=== PATIENT | female | born 1960 | race Caucasian/White ===

== ENCOUNTER 2017-01-05 13:38 | Emergency (ER) | payer OTHER ==
[~2017-01-05] VITALS: Ht 160 cm; Wt 108.9 kg
[~2017-01-05 13:38] MED LIST: IBU800 M1 PO; PROTONIX20 MG PO; Synthroid,Levo88 MCG PO; VITAMIN D1000 IU PO; Zofran4 MG PO
[2017-01-05] MEDS ORDERED: PANTOPRAZOLE SO40 MG PO (13:52)
[2017-01-05] MEDS ORDERED: [UNRECOGNIZED DRUG - OTHER] PO (13:53)
[2017-01-05 13:54] VITALS: BP 110/78
[2017-01-05 15:02] LABS: HEMATOCRIT 35.4 % (37.0-47.0); MEAN CELL VOLUME 92.4 fl (81.0-99.0); MEAN CORPUSCULAR HGB 31.3 pg (27.0-31.0); MEAN CORPUSCULAR HGB CONC 33.9 g/dl (33.0-37.0); MEAN PLATELET VOLUME 9.6 fl (9.6-12.3); PLATELET COUNT AUTOMATED 261 10*3/uL (130-400); RED BLOOD COUNT 3.83 10*6/uL (4.10-5.10); RED CELL DISTRI WIDTH 13.8 % (0-14.5); WHITE BLOOD COUNT 5.5 10*3/uL (4.8-10.8)
[2017-01-05 15:20] LABS: ALBUMIN 3.2 gm/dl (3.1-4.5); BILIRUBIN, TOTAL 0.4 mg/dl (0.2-1.0); C-REACTIVE PROTEIN 0.82 MG/DL (0-0.3); POTASSIUM 3.4 mmol/L (3.5-5.1); TOTAL PROTEIN 6.8 gm/dL (6.4-8.2)
[2017-01-05 15:25] LABS: ATYPICAL LYMPHS 1 % (0-0); EOSINOPHIL # 0.1 10*3/uL (0-0.4); EOSINOPHILS 2 % (1-4); LYMPHOCYTE # 1.8 10*3/uL (1.3-4.4); MONOCYTE # 0.2 10*3/uL (0.1-1.0); NEUTROPHIL # 3.4 10*3/uL (2.3-7.9); NEUTROPHILS 62 % (47-73); TOTAL CELLS COUNTED 100 #CELLS
[2017-01-05 15:26] LABS: PLATELET SUFFICIENCY NORMAL (NORMAL); POLYCHROMASIA SLIGHT
[2017-01-05 15:51] LABS: BILIRUBIN 3+ (NEGATIVE); BLOOD NEGATIVE (NEGATIVE); CLARITY CLEAR (CLEAR); COLOR YELLOW (YELLOW); GLUCOSE NEGATIVE (NEGATIVE); KETONE NEGATIVE (NEGATIVE); LEUKO ESTERASE NEGATIVE (NEGATIVE); NITRITE NEGATIVE (NEGATIVE); PH 5.5 (5.0-9.0); PROTEIN NEGATIVE (NEGATIVE); SPECIFIC GRAVITY 1.015 (1.005-1.030); UROBILINOGEN 0.2 E.U./dl (0.2-1.0)
[2017-01-05 16:17] LABS: RBC 0-2 rbc/hpf (0-2)
[2017-01-05 16:18] LABS: BACTERIA 1+; URINE REFLEX COMMENT YES (NO)
[2017-01-05 19:13] VITALS: BP 119/54
== END 2017-01-05 19:50 | disposition short-term general hospital (02) ==
LOC: ED 13:38 → EDHOLD 17:42 → ED 19:50
PROVIDERS: Physician Assistant
DX: K52.9 Noninfective gastroenteritis and colitis, unspecified (principal); N13.30 Unspecified hydronephrosis; E86.0 Dehydration; Z88.2 Allergy status to sulfonamides; Z88.6 Allergy status to analgesic agent; Z79.899 Other long term (current) drug therapy

== ENCOUNTER → 2022-12-05 | Outpatient (CLI) | payer OTHER ==
[~2022-12-05] MED LIST changes: +PANTOPRAZOLE SO40 MG PO; +[UNRECOGNIZED DRUG - OTHER] PO
== END | disposition home or self-care (01) ==
LOC: RESCLI 15:40
PROVIDERS: ATTEND Internal Medicine
DX: E03.9 Hypothyroidism, unspecified (principal); I50.20 Unspecified systolic (congestive) heart failure; F41.9 Anxiety disorder, unspecified; E78.5 Hyperlipidemia, unspecified; K21.9 Gastro-esophageal reflux disease without esophagitis; M10.9 Gout, unspecified; E56.9 Vitamin deficiency, unspecified; G89.29 Other chronic pain; J30.2 Other seasonal allergic rhinitis; Z98.890 Other specified postprocedural states; Z82.49 Family history of ischemic heart disease and other diseases of the circulatory system; Z90.49 Acquired absence of other specified parts of digestive tract; Z86.711 Personal history of pulmonary embolism; Z90.710 Acquired absence of both cervix and uterus; Z88.2 Allergy status to sulfonamides; Z88.8 Allergy status to other drugs, medicaments and biological substances; Z88.5 Allergy status to narcotic agent; Z79.899 Other long term (current) drug therapy

== ENCOUNTER 2023-07-25 17:31 | Inpatient (IN) | payer OTHER ==
[~2023-07-25] VITALS: Ht 160 cm; Wt 114.3 kg
[2023-07-25 17:43] VITALS: BP 81/62
[2023-07-25 18:08] VITALS: BP 104/54
[2023-07-25 18:25] LABS: BASO # 0.1 10*3/uL (0.0-0.1); BASO % 0.6 % (0.0-1.0); EOS # 0.1 10*3/uL (0.0-0.4); EOS % 0.6 % (1.0-4.0); HEMATOCRIT 40.1 % (37.0-47.0); LYMPH # 1.8 10*3/uL (1.3-4.4); LYMPH % 21.4 % (27.0-41.0); MEAN CORPUSCULAR HGB 28.4 pg (27.0-31.0); MEAN CORPUSCULAR HGB CONC 30.9 g/dl (33.0-37.0); MEAN PLATELET VOLUME 9.1 fl (9.6-12.3); MONO # 0.7 10*3/uL (0.1-1.0); MONO % 8.3 % (3.0-9.0); NEUT # 5.7 10*3/uL (2.3-7.9); NEUT % 68.6 % (47.0-73.0); PLATELET COUNT AUTOMATED 473 10*3/uL (130-400); RED BLOOD COUNT 4.36 10*6/uL (4.10-5.10); RED CELL DISTRI WIDTH 14.3 % (0-14.5); WHITE BLOOD COUNT 8.4 10*3/uL (4.8-10.8)
[2023-07-25 18:46] LABS: POTASSIUM 3.9 mmol/L (3.4-5.1); TOTAL PROTEIN 7.1 gm/dL (6.0-8.0)
[2023-07-25 22:03] VITALS: BP 128/81
[2023-07-25 22:12] LABS: BILIRUBIN Negative (Negative); BLOOD Trace-Lysed (Negative); CLARITY Clear (Clear); COLOR Yellow (Yellow); GLUCOSE 3+ (Negative); KETONE 1+ (Negative); LEUKO ESTERASE Negative (Negative); NITRITE Negative (Negative); SPECIFIC GRAVITY >= 1.030 (1.001-1.030)
[2023-07-25 22:36] LABS: EPITHELIAL CELLS 21-30
[2023-07-25 22:37] LABS: WBC 0-2 wbc/hpf (0-5)
[2023-07-25 23:16] VITALS: BP 116/49
[2023-07-25] MEDS ORDERED: ALLOPURINOL200 MG PO (23:18)
[2023-07-25] MEDS ORDERED: BENZONATATE100 M1 PO (23:18)
[2023-07-25] MEDS ORDERED: LASIX20 MG PO (23:19)
[2023-07-25] MEDS ORDERED: LORADAMED10 MG PO (23:19)
[2023-07-25] MEDS ORDERED: JARDIANCE10 MG PO (23:19)
[2023-07-25] MEDS ORDERED: MULTIVITAMIN1 EACH PO (23:20)
[2023-07-25] MEDS ORDERED: METOPROLOL SUCC25 M2 PO (23:20)
[2023-07-25] MEDS ORDERED: PROBIOTIC FORM1 EACH PO (23:21)
[2023-07-25] MEDS ORDERED: ROSUVASTATIN CA20 MG PO (23:22)
[2023-07-25] MEDS ORDERED: PROTONIX20 MG PO (23:22)
[2023-07-25] MEDS ORDERED: SYNTHROID,LEVO88 MCG PO (23:23)
[2023-07-25] MEDS ORDERED: TYLENOL325 M1 PO (23:23)
[2023-07-25] MEDS ORDERED: XARE20MG PO (23:24)
[2023-07-25] MEDS ORDERED: VITAMIN D325 MCG PO (23:24)
[2023-07-26] VITALS: BP 110/60
[2023-07-26 05:22] LABS: FREE T4 1.54 ng/dl (0.89-1.76); TOTAL PROTEIN 6.2 gm/dL (6.0-8.0)
[2023-07-26 06:28] LABS: BASO % 0.5 % (0.0-1.0); EOS # 0.1 10*3/uL (0.0-0.4); EOS % 1.2 % (1.0-4.0); HEMATOCRIT 35.4 % (37.0-47.0); LYMPH # 3.1 10*3/uL (1.3-4.4); LYMPH % 37.5 % (27.0-41.0); MEAN CELL VOLUME 94.1 fl (81.0-99.0); MEAN CORPUSCULAR HGB 28.7 pg (27.0-31.0); MEAN CORPUSCULAR HGB CONC 30.5 g/dl (33.0-37.0); MEAN PLATELET VOLUME 9.8 fl (9.6-12.3); MONO # 0.7 10*3/uL (0.1-1.0); MONO % 8.1 % (3.0-9.0); NEUT # 4.4 10*3/uL (2.3-7.9); NEUT % 52.3 % (47.0-73.0); PLATELET COUNT AUTOMATED 408 10*3/uL (130-400); RED BLOOD COUNT 3.76 10*6/uL (4.10-5.10); RED CELL DISTRI WIDTH 14.5 % (0-14.5); WHITE BLOOD COUNT 8.3 10*3/uL (4.8-10.8)
[2023-07-26 08:00] VITALS: BP 120/60
[2023-07-26 12:00] VITALS: BP 123/47
[2023-07-26 12:25] VITALS: BP 115/44
[2023-07-26] MEDS ORDERED: ENTRESTO 24 MG1 EACH PO (12:35)
[2023-07-26] MEDS ORDERED: TRAMADOL HCL100 MG PO (12:39)
[2023-07-26] MEDS ORDERED: PROTONIX40 MG PO (13:38)
[2023-07-26 16:00] VITALS: BP 130/74
[2023-07-26 18:04] LABS: BASO # 0.1 10*3/uL (0.0-0.1); BASO % 0.7 % (0.0-1.0); EOS # 0.1 10*3/uL (0.0-0.4); EOS % 1.7 % (1.0-4.0); HEMATOCRIT 36.8 % (37.0-47.0); LYMPH # 2.4 10*3/uL (1.3-4.4); LYMPH % 31.1 % (27.0-41.0); MEAN CELL VOLUME 94.4 fl (81.0-99.0); MEAN CORPUSCULAR HGB CONC 30.7 g/dl (33.0-37.0); MEAN PLATELET VOLUME 8.8 fl (9.6-12.3); MONO # 0.7 10*3/uL (0.1-1.0); MONO % 8.9 % (3.0-9.0); NEUT # 4.4 10*3/uL (2.3-7.9); NEUT % 56.9 % (47.0-73.0); PLATELET COUNT AUTOMATED 388 10*3/uL (130-400); RED CELL DISTRI WIDTH 14.4 % (0-14.5); WHITE BLOOD COUNT 7.7 10*3/uL (4.8-10.8)
[2023-07-26 20:00] VITALS: BP 121/66
[2023-07-27] VITALS: BP 120/58
[2023-07-27 06:35] LABS: BASO % 0.7 % (0.0-1.0); EOS # 0.1 10*3/uL (0.0-0.4); EOS % 2.4 % (1.0-4.0); HEMATOCRIT 32.8 % (37.0-47.0); LYMPH # 1.9 10*3/uL (1.3-4.4); LYMPH % 32.6 % (27.0-41.0); MEAN CELL VOLUME 96.5 fl (81.0-99.0); MEAN CORPUSCULAR HGB 28.8 pg (27.0-31.0); MEAN CORPUSCULAR HGB CONC 29.9 g/dl (33.0-37.0); MEAN PLATELET VOLUME 9.5 fl (9.6-12.3); MONO # 0.6 10*3/uL (0.1-1.0); MONO % 9.4 % (3.0-9.0); NEUT # 3.2 10*3/uL (2.3-7.9); NEUT % 54.6 % (47.0-73.0); PLATELET COUNT AUTOMATED 325 10*3/uL (130-400); RED CELL DISTRI WIDTH 14.5 % (0-14.5); WHITE BLOOD COUNT 5.9 10*3/uL (4.8-10.8)
[2023-07-27 07:15] LABS: BUN 10 mg/dl (9-23); CHLORIDE 110 mmol/L (98-107); POTASSIUM 4.4 mmol/L (3.4-5.1)
[2023-07-27 08:00] VITALS: BP 141/51
[2023-07-27 12:00] VITALS: BP 131/57
[2023-07-27 16:00] VITALS: BP 112/60
[2023-07-27 20:00] VITALS: BP 109/57
[2023-07-28] VITALS: BP 122/63
[2023-07-28 05:18] LABS: BUN 12 mg/dl (9-23); CHLORIDE 110 mmol/L (98-107); POTASSIUM 4.6 mmol/L (3.4-5.1)
[2023-07-28 06:16] LABS: BASO % 0.5 % (0.0-1.0); EOS # 0.1 10*3/uL (0.0-0.4); EOS % 1.8 % (1.0-4.0); HEMATOCRIT 31.8 % (37.0-47.0); LYMPH # 1.8 10*3/uL (1.3-4.4); LYMPH % 32.7 % (27.0-41.0); MEAN CELL VOLUME 95.2 fl (81.0-99.0); MEAN CORPUSCULAR HGB 29.3 pg (27.0-31.0); MEAN CORPUSCULAR HGB CONC 30.8 g/dl (33.0-37.0); MEAN PLATELET VOLUME 9.4 fl (9.6-12.3); MONO # 0.5 10*3/uL (0.1-1.0); MONO % 8.9 % (3.0-9.0); NEUT # 3.1 10*3/uL (2.3-7.9); NEUT % 55.7 % (47.0-73.0); PLATELET COUNT AUTOMATED 271 10*3/uL (130-400); RED BLOOD COUNT 3.34 10*6/uL (4.10-5.10); RED CELL DISTRI WIDTH 14.5 % (0-14.5); WHITE BLOOD COUNT 5.5 10*3/uL (4.8-10.8)
[2023-07-28 08:00] VITALS: BP 100/49
[2023-07-28 12:00] VITALS: BP 117/47
[2023-07-28 16:00] VITALS: BP 93/52
[2023-07-28 20:00] VITALS: BP 99/61
[2023-07-29] VITALS: BP 104/46
[2023-07-29 05:26] LABS: BUN 14 mg/dl (9-23); CHLORIDE 110 mmol/L (98-107); POTASSIUM 4.5 mmol/L (3.4-5.1)
[2023-07-29 06:22] LABS: BASO % 0.6 % (0.0-1.0); EOS # 0.1 10*3/uL (0.0-0.4); EOS % 1.5 % (1.0-4.0); HEMATOCRIT 31.5 % (37.0-47.0); LYMPH # 1.6 10*3/uL (1.3-4.4); LYMPH % 25.1 % (27.0-41.0); MEAN CELL VOLUME 94.3 fl (81.0-99.0); MEAN CORPUSCULAR HGB 28.7 pg (27.0-31.0); MEAN CORPUSCULAR HGB CONC 30.5 g/dl (33.0-37.0); MEAN PLATELET VOLUME 9.6 fl (9.6-12.3); MONO # 0.6 10*3/uL (0.1-1.0); MONO % 8.4 % (3.0-9.0); NEUT # 4.2 10*3/uL (2.3-7.9); NEUT % 64.1 % (47.0-73.0); PLATELET COUNT AUTOMATED 238 10*3/uL (130-400); RED BLOOD COUNT 3.34 10*6/uL (4.10-5.10); RED CELL DISTRI WIDTH 14.4 % (0-14.5); WHITE BLOOD COUNT 6.5 10*3/uL (4.8-10.8)
[2023-07-29 08:00] VITALS: BP 106/37
[2023-07-29] MEDS ORDERED: PROTONIX40 MG PO (11:32)
[2023-07-29] MEDS ORDERED: Carafate1 GM PO (11:32)
[2023-07-29] MEDS ORDERED: RECTICARE15 GM T (13:03)
== END 2023-07-29 13:20 | disposition home or self-care (01) | DRG 871 ==
LOC: ED 17:31 → ICCU 22:17 → EDHOLD 22:17 → ICCU 23:12
PROVIDERS: Internal Medicine; Nurse Practitioner Family; Student in an Organized Health Care Education/Training Program; ADMIT Internal Medicine; ATTEND Internal Medicine
DX: A41.9 Sepsis, unspecified organism (principal); N17.0 Acute kidney failure with tubular necrosis; L03.115 Cellulitis of right lower limb; E87.20 Acidosis, unspecified; I50.32 Chronic diastolic (congestive) heart failure; Z68.41 Body mass index [BMI] 40.0-44.9, adult; R65.20 Severe sepsis without septic shock; E03.9 Hypothyroidism, unspecified; G89.29 Other chronic pain; M54.9 Dorsalgia, unspecified; Z96.651 Presence of right artificial knee joint; Z96.661 Presence of right artificial ankle joint; D75.839 Thrombocytosis, unspecified; R73.9 Hyperglycemia, unspecified; E78.5 Hyperlipidemia, unspecified; M1A.0790 Idiopathic chronic gout, unspecified ankle and foot, without tophus (tophi); N28.9 Disorder of kidney and ureter, unspecified; D50.0 Iron deficiency anemia secondary to blood loss (chronic); K76.9 Liver disease, unspecified; K25.7 Chronic gastric ulcer without hemorrhage or perforation; Z88.6 Allergy status to analgesic agent; Z88.2 Allergy status to sulfonamides; Z88.8 Allergy status to other drugs, medicaments and biological substances; Z86.718 Personal history of other venous thrombosis and embolism; Z86.711 Personal history of pulmonary embolism; Z90.710 Acquired absence of both cervix and uterus; Z90.49 Acquired absence of other specified parts of digestive tract

== ENCOUNTER 2023-08-03 14:55 | Emergency (ER) | payer OTHER ==
[~2023-08-03] VITALS: Wt 108.9 kg
[~2023-08-03 14:55] MED LIST changes: +ALLOPURINOL200 MG PO; +BENZONATATE100 M1 PO; +Carafate1 GM PO; +ENTRESTO 24 MG1 EACH PO; +JARDIANCE10 MG PO; +LASIX20 MG PO; +LORADAMED10 MG PO; +METOPROLOL SUCC25 M2 PO; +MULTIVITAMIN1 EACH PO; +PROBIOTIC FORM1 EACH PO; +PROTONIX40 MG PO; +RECTICARE15 GM T; +ROSUVASTATIN CA20 MG PO; +SYNTHROID,LEVO88 MCG PO; +TRAMADOL HCL100 MG PO; +TYLENOL325 M1 PO; +VITAMIN D325 MCG PO; +XARE20MG PO
[2023-08-03 16:39] LABS: BASO % 0.3 % (0.0-1.0); EOS % 0.6 % (1.0-4.0); LYMPH # 1.5 10*3/uL (1.3-4.4); MEAN CELL VOLUME 90.7 fl (81.0-99.0); MEAN CORPUSCULAR HGB 28.9 pg (27.0-31.0); MEAN CORPUSCULAR HGB CONC 31.9 g/dl (33.0-37.0); MEAN PLATELET VOLUME 9.7 fl (9.6-12.3); MONO # 0.4 10*3/uL (0.1-1.0); MONO % 5.8 % (3.0-9.0); NEUT # 4.6 10*3/uL (2.3-7.9); PLATELET COUNT AUTOMATED 255 10*3/uL (130-400); RED BLOOD COUNT 4.08 10*6/uL (4.10-5.10); RED CELL DISTRI WIDTH 13.9 % (0-14.5); WHITE BLOOD COUNT 6.5 10*3/uL (4.8-10.8)
[2023-08-03 16:50] LABS: ACT PARTIAL THROMBO TIME 23.8 SECONDS (20.0-32.1)
[2023-08-03 17:04] LABS: POTASSIUM 3.3 mmol/L (3.4-5.1); TOTAL PROTEIN 7.4 gm/dL (6.0-8.0)
[2023-08-03 18:48] LABS: BILIRUBIN Negative (Negative); BLOOD Trace-Lysed (Negative); CLARITY Clear (Clear); COLOR Yellow (Yellow); GLUCOSE 3+ (Negative); KETONE Trace (Negative); LEUKO ESTERASE Negative (Negative); NITRITE Negative (Negative); PH 5.5 (4.5-8.0); SPECIFIC GRAVITY >= 1.030 (1.001-1.030); UROBILINOGEN 0.2 E.U./dl (0.0-1.0)
[2023-08-03 19:07] LABS: BACTERIA TRACE
[2023-08-03] MEDS ORDERED: ONDANSETRON4 MG SL (22:46)
== END 2023-08-03 22:45 | disposition home or self-care (01) ==
LOC: ED 14:55
PROVIDERS: Nurse Practitioner Family
DX: R31.9 Hematuria, unspecified (principal); R10.9 Unspecified abdominal pain; E87.6 Hypokalemia; R11.2 Nausea with vomiting, unspecified; R19.7 Diarrhea, unspecified; D64.9 Anemia, unspecified; E78.5 Hyperlipidemia, unspecified; I50.9 Heart failure, unspecified; E03.9 Hypothyroidism, unspecified; Z86.718 Personal history of other venous thrombosis and embolism; R73.9 Hyperglycemia, unspecified; Z88.2 Allergy status to sulfonamides; Z88.1 Allergy status to other antibiotic agents; Z88.5 Allergy status to narcotic agent

== ENCOUNTER → 2023-08-24 | Day surgery (SDC) | payer OTHER ==
[~2023-08-24] VITALS: Ht 160 cm; Wt 108.9 kg
[~2023-08-24] MED LIST changes: +ONDANSETRON4 MG SL; +XARELTO20 M1 PO
[2023-08-24 09:12] LABS: BASO % 0.5 % (0.0-1.0); EOS # 0.1 10*3/uL (0.0-0.4); EOS % 2.1 % (1.0-4.0); HEMATOCRIT 36.4 % (37.0-47.0); LYMPH # 2.1 10*3/uL (1.3-4.4); LYMPH % 32.7 % (27.0-41.0); MEAN CORPUSCULAR HGB 27.6 pg (27.0-31.0); MEAN PLATELET VOLUME 9.2 fl (9.6-12.3); MONO # 0.5 10*3/uL (0.1-1.0); MONO % 7.5 % (3.0-9.0); NEUT # 3.6 10*3/uL (2.3-7.9); NEUT % 56.9 % (47.0-73.0); PLATELET COUNT AUTOMATED 260 10*3/uL (130-400); RED BLOOD COUNT 4.09 10*6/uL (4.10-5.10); RED CELL DISTRI WIDTH 13.7 % (0-14.5); WHITE BLOOD COUNT 6.3 10*3/uL (4.8-10.8)
[2023-08-24 09:32] VITALS: BP 104/75
[2023-08-24 09:34] LABS: BUN 11 mg/dl (9-23); CHLORIDE 111 mmol/L (98-107); POTASSIUM 3.8 mmol/L (3.4-5.1)
[2023-08-24 10:07] VITALS: BP 103/53
[2023-08-24 10:24] VITALS: BP 109/57
[2023-08-24 10:36] VITALS: BP 107/55
== END | disposition home or self-care (01) ==
LOC: SDC 08-20 11:00
PROVIDERS: ATTEND Surgery
DX: R10.12 Left upper quadrant pain (principal); E66.01 Morbid (severe) obesity due to excess calories; K92.2 Gastrointestinal hemorrhage, unspecified; K44.9 Diaphragmatic hernia without obstruction or gangrene; K20.90 Esophagitis, unspecified without bleeding; I11.0 Hypertensive heart disease with heart failure; I50.9 Heart failure, unspecified; I25.10 Atherosclerotic heart disease of native coronary artery without angina pectoris; K76.0 Fatty (change of) liver, not elsewhere classified; Z79.899 Other long term (current) drug therapy; Z90.49 Acquired absence of other specified parts of digestive tract; Z90.710 Acquired absence of both cervix and uterus; Z98.890 Other specified postprocedural states; Z88.1 Allergy status to other antibiotic agents; Z88.2 Allergy status to sulfonamides; Z88.8 Allergy status to other drugs, medicaments and biological substances; Z68.41 Body mass index [BMI] 40.0-44.9, adult

== ENCOUNTER → 2023-10-16 | Outpatient (CLI) | payer OTHER | END | disposition home or self-care (01) | LOC: RESCLI 00:42 | PROVIDERS: ATTEND Internal Medicine | DX: I11.0 Hypertensive heart disease with heart failure (principal); I50.20 Unspecified systolic (congestive) heart failure; E78.5 Hyperlipidemia, unspecified; K21.9 Gastro-esophageal reflux disease without esophagitis; G89.29 Other chronic pain; I25.10 Atherosclerotic heart disease of native coronary artery without angina pectoris; M10.9 Gout, unspecified; F41.9 Anxiety disorder, unspecified; E56.9 Vitamin deficiency, unspecified; J30.2 Other seasonal allergic rhinitis; Z88.8 Allergy status to other drugs, medicaments and biological substances; Z82.49 Family history of ischemic heart disease and other diseases of the circulatory system; Z79.899 Other long term (current) drug therapy; Z86.711 Personal history of pulmonary embolism ==